=== PATIENT | female | born 1955 | race Caucasian/White ===

== ENCOUNTER 2018-12-23 18:45 | Emergency (ER) | payer OTHER ==
[~2018-12-23] VITALS: Ht 167.6 cm; Wt 72.6 kg
[~2018-12-23 18:45] MED LIST: CARISOPRODOL350 MG PO; CHLORZOXAZONE; DICLOFENAC SODI50 MG; HYOMAX-SL; LIBRAX CAPSULE1 CA1 PO; LYRICA50 MG PO; METOCLOPRAMIDE10 MG PO; PREVACID30 MG PO; VASOTEC5 MG; ZANTAC150 M1 PO
== END 2018-12-23 23:02 | disposition home or self-care (01) ==
LOC: ER 18:45
DX: K59.09 Other constipation (principal)